=== PATIENT | female | born 1990 | race Asian ===

== ENCOUNTER 2021-04-14 09:00 | Outpatient (REF) | payer MEDICAID, SELFPAY ==
[2021-04-14 11:12] LABS: MANUAL DIFF FLAG NO
[2021-04-14 11:20] LABS: Basophils Absolute Auto 0.1 X10*3/uL (0.0-0.2); Basophils Percent Auto 0.7 % (0-2); Eosinophils Absolute Auto 0.4 X10*3/uL (0.0-0.4); Eosinophils Percent Auto 4.4 % (0-4); Hematocrit 35.8 % (37-47); Hemoglobin 11.8 g/dl (12.0-16.0); Imm Gran Abs Auto 0.03 X10*3/uL (0.00-0.03); Imm Gran Pct Auto 0.3 % (0.0-0.4); Lymphocytes Absolute Auto 3.5 X10*3/uL (1.2-4.9); Lymphocytes Percent Auto 36.7 % (20-40); Mean Corpuscular Hemoglobin 31.1 pg (27.0-33.0); Mean Corpuscular Volume 94.2 fL (80-98); Mean Platelet Volume 10.3 fL (9.4-12.3); Monocytes Absolute Auto 0.7 X10*3/uL (0.1-1.2); Monocytes Percent Auto 7.6 % (2-11); Neutrophils Absolute Auto 4.7 X10*3/uL (2.0-8.3); Neutrophils Percent Auto 50.3 % (45-73); Platelet Count 228 X10*3/uL (160-400); Red Cell Distribution Width 13.9 % (11.0-16.0); White Blood Count 9.4 X10*3/uL (4.8-10.8)
[2021-04-14 11:40] LABS: Alanine Aminotransferase 16 U/L (0-31); Albumin Level 4.2 g/dL (3.5-5.0); Alkaline Phosphatase 57 U/L (39-117); Anion Gap 9 (12-20); Aspartate Amino Transferase 15 U/L (5-31); Bilirubin Total 0.2 mg/dL (0.0-1.0); Blood Urea Nitrogen 8 mg/dL (9-16); C Reactive Protein 0.18 mg/dL (< or = 0.50); Carbon Dioxide 23 mmol/L (22-29); Chloride 111 mmol/L (96-108); Cholesterol 170 mg/dL; Estimated Glomerular Filt Rate > 60; Glucose Fasting 97 mg/dL (60-99); HDL Cholesterol 37 mg/dL; Iron 65 mcg/dL (30-160); LDL Cholesterol Calculated 121 mg/dl; Percent Iron Saturation 16 % (15-50); Potassium 4.4 mmol/L (3.3-5.1); Sodium 139 mmol/L (135-145); Total Iron Binding Capacity 410 mcg/dL (228-428); Total Protein 6.6 g/dL (6.5-8.0); Triglycerides 60 mg/dL; Unsaturated Iron Binding 345 ug/dL
[2021-04-14 11:46] LABS: Rheumatoid Factor < 15.0 IU/mL (<15.0)
[2021-04-14 11:58] LABS: Ferritin 17 ng/mL (10-122); Free T4 (Free Thyroxine) 0.81 ng/dL (0.71-1.85); Thyroid Stimulating Hormone 0.98 uIU/mL (0.32-4.0); Vitamin D 25-OH Total 25.7 ng/mL (>30)
[2021-04-14 12:34] LABS: Folate 6.5 ng/mL (> or = 4.0); Vitamin B12 219 pg/mL (200-900)
[2021-04-14 12:41] LABS: Erythrocyte Sedimentation Rate 5 MM/HR (0-20)
[2021-04-15 12:52] LABS: Anti Nuclear Antibody Screen NEGATIVE (NEGATIVE)
[2021-04-15 13:16] LABS: Lyme Abs Screen <0.90 index
== END 2021-04-14 09:01 | disposition home or self-care (01) ==
LOC: HO.MANLDS 09:00
PROVIDERS: PCP Internal Medicine; Visit Provider Physician Assistant
DX: Z00.00 Encounter for general adult medical examination without abnormal findings (principal); R53.83 Other fatigue
CPT/HCPCS: 36415; 80053; 80061; 82306; 82607; 82728; 82746; 83540; 84439; 84443; 85025; 85652; 86038; 86039; 86140; 86431; 86617; 86618

== ENCOUNTER 2021-05-14 15:56 | Outpatient (REF) | payer MEDICAID, SELFPAY | END 2021-05-14 15:57 | disposition home or self-care (01) | LOC: HO.MANLDS 15:56 | PROVIDERS: PCP Internal Medicine; Visit Provider Physician Assistant | DX: R30.9 Painful micturition, unspecified (principal) | CPT/HCPCS: 87086; 87088; 87186 ==

== ENCOUNTER 2024-01-19 08:53 | Outpatient (REF) | payer MEDICAID, SELFPAY ==
[2024-01-19 13:24] LABS: MANUAL DIFF FLAG NO
[2024-01-19 13:29] LABS: Basophils Absolute Auto 0.1 X10*3/uL (0.0-0.2); Basophils Percent Auto 0.6 % (0-2); Eosinophils Absolute Auto 0.4 X10*3/uL (0.0-0.4); Eosinophils Percent Auto 3.7 % (0-4); Hematocrit 38.4 % (37.0-47.0); Hemoglobin 12.8 g/dl (12.0-16.0); Imm Gran Abs Auto 0.03 X10*3/uL (0.00-0.03); Imm Gran Pct Auto 0.3 % (0.0-0.4); Lymphocytes Absolute Auto 3.7 X10*3/uL (1.2-4.9); Lymphocytes Percent Auto 38.4 % (20-40); Mean Corpuscular HGB Conc 33.3 g/dl (31.0-35.0); Mean Corpuscular Hemoglobin 31.1 pg (27.0-33.0); Mean Corpuscular Volume 93.4 fL (80.0-98.0); Mean Platelet Volume 10.3 fL (9.4-12.3); Monocytes Absolute Auto 0.7 X10*3/uL (0.1-1.2); Monocytes Percent Auto 6.9 % (2-11); Neutrophils Absolute Auto 4.8 x10*3/uL (2.0-8.3); Neutrophils Percent Auto 50.1 % (45-73); Platelet Count 257 X10*3/uL (160-400); Red Blood Count 4.11 X10*6/uL (4.20-5.50); Red Cell Distribution Width 13.6 % (11.0-16.0); White Blood Count 9.5 X10*3/uL (4.8-10.8)
[2024-01-19 14:22] LABS: Alanine Aminotransferase 29 U/L (0-31); Albumin Level 4.3 g/dL (3.5-5.0); Alkaline Phosphatase 56 U/L (39-117); Anion Gap 8 (12-20); Aspartate Amino Transferase 26 U/L (5-31); Bilirubin Total 0.3 mg/dL (0.0-1.0); Blood Urea Nitrogen 9 mg/dL (9-16); Calcium 9.7 mg/dL (8.4-10.2); Carbon Dioxide 26 mmol/L (22-29); Chloride 110 mmol/L (96-108); Cholesterol 149 mg/dL (<200); Estimated Glomerular Filt Rate > 60; Glucose Random 95 mg/dL (60-115); HDL Cholesterol 40 mg/dL (>40); Iron 74 mcg/dL (30-160); LDL Cholesterol Calculated 92 mg/dL (<100); Percent Iron Saturation 19 % (15-50); Potassium 4.3 mmol/L (3.3-5.1); Sodium 140 mmol/L (135-145); Total Iron Binding Capacity 389 mcg/dL (228-428); Total Protein 7.4 g/dL (6.5-8.0); Triglycerides 89 mg/dL (<150); Unsaturated Iron Binding 315 ug/dL
[2024-01-19 14:27] LABS: Ferritin 45 ng/mL (10-122); Free T4 (Free Thyroxine) 0.82 ng/dL (0.71-1.85); Thyroid Stimulating Hormone 2.31 uIU/mL (0.32-4.0); Vitamin D 25-OH Total 38.6 ng/mL (>30)
[2024-01-19 14:33] LABS: Folate 10.7 ng/mL (> or = 4.0); Vitamin B12 311 pg/mL (200-900)
== END 2024-01-19 08:54 | disposition home or self-care (01) ==
LOC: HO.MANLDS 08:53
PROVIDERS: Visit Provider Physician Assistant
DX: Z00.00 Encounter for general adult medical examination without abnormal findings (principal)
CPT/HCPCS: 36415; 80053; 80061; 82306; 82533; 82607; 82728; 82746; 83540; 83970; 84439; 84443; 85025